=== PATIENT | female | born 1945 | race African-American/Black ===

== ENCOUNTER 2022-08-04 21:37 | Emergency (ER) | payer OTHER ==
[2022-08-04 21:43] VITALS: RESP 18; BMI 39.4
[2022-08-04] MEDS ORDERED: DIPHTH,PERTUSS(ACELL),TET 0.5 ML DISP.SYRIN IM ONE ×2 (22:39→23:30)
[2022-08-04] MEDS ORDERED: ACETAMINOPHEN 500 MG TABLET (FP) PO ONE (22:41)
[2022-08-04] MEDS ORDERED: ACETAMINOPHEN 325 MG TABLET (FP) ONE (23:30)
[2022-08-05 00:41] VITALS: BP 169/80; PULSE 79; TEMP 98.5
== END 2022-08-05 00:41 | disposition home or self-care (01) ==
LOC: JER 21:37
PROC: 0HQ0XZZ Repair Scalp Skin, External Approach (ICD-10-PCS; principal; 2022-08-04)
PROC: 3E0234Z Introduction of Serum, Toxoid and Vaccine into Muscle, Percutaneous Approach (ICD-10-PCS; 2022-08-04)
DX: S01.01XA Laceration without foreign body of scalp, initial encounter (principal); W10.8XXA Fall (on) (from) other stairs and steps, initial encounter; W22.8XXA Striking against or struck by other objects, initial encounter
CPT/HCPCS: 12001-25; 70450-TC; 72125-TC; 90471; 90715; 99284-25

== ENCOUNTER 2022-08-11 10:12 | Emergency (ER) | payer OTHER ==
[2022-08-11 10:21] VITALS: BP 130/79; PULSE 95; RESP 17; TEMP 97.8; BMI 37.8
== END 2022-08-11 11:36 | disposition home or self-care (01) ==
LOC: JERFT 10:12
DX: Z48.02 Encounter for removal of sutures (principal)
CPT/HCPCS: 99282-25